=== PATIENT | female | born 1930 | race Caucasian/White ===

== ENCOUNTER 2018-04-18 12:40 | Inpatient (IN) | payer OTHER ==
[~2018-04-18] VITALS: Ht 152.4 cm; Wt 52.2 kg
[2018-04-18 12:41] VITALS: BP 123/74
[2018-04-18 13:01] LABS: ABSOLUTE NEUTROPHILS 11.2 thou/uL (1.4-8.2); BASOPHILS 0.4 % (0.0-2.0); HEMATOCRIT 39.7 % (37.0-47.0); HEMOGLOBIN 13.3 gm/dL (12.0-15.0); LYMPHOCYTES 5.6 % (24.0-44.0); MCHC 33.5 g/dL (28.0-37.0); MCV 92.5 fL (80.0-100.0); MONOCYTES 6.1 % (1.0-8.0); PLATELET COUNT 227 thou/uL (150-400); POLYS 87.9 % (36.0-66.0); RBC 4.29 mil/uL (4.20-5.00); RDW 14.8 % (10.5-14.5); WBC 12.7 thou/uL (4.0-11.0)
[2018-04-18 13:05] LABS: URINE BILIRUBIN NEGATIVE (Negative); URINE BLOOD NEGATIVE (Negative); URINE CLARITY CLEAR; URINE COLOR YELLOW; URINE GLUCOSE-RANDOM* TRACE (Negative); URINE KETONES NEGATIVE (Negative); URINE LEUKOCYTES-REFLEX NEGATIVE (Negative); URINE NITRITE-REFLEX NEGATIVE (Negative); URINE PROTEIN (DIPSTICK) 1+ (Negative); URINE SPECIFIC GRAVITY 1.025 (1.005-1.035); URINE UROBILINOGEN 0.2 E.U./dl (0.2-1.0)
[2018-04-18] MEDS ORDERED: CELEXA20 MG PO (13:07)
[2018-04-18] MEDS ORDERED: FOLIC ACID0.4 MG PO (13:07)
[2018-04-18] MEDS ORDERED: ARICEPT 5 MG TAB5 MG PO (13:07)
[2018-04-18] MEDS ORDERED: IRON325 PO (13:07)
[2018-04-18] MEDS ORDERED: NAMENDA 10 MG T10 MG PO (13:08)
[2018-04-18] MEDS ORDERED: SYNTHROID75 MCG PO (13:08)
[2018-04-18] MEDS ORDERED: OMEPRAZOLE40 MG PO (13:08)
[2018-04-18 13:09] LABS: ANION GAP 9 mmol/L (7-16); BUN 20 mg/dL (7-18); CALCIUM 8.9 mg/dL (8.5-10.1); CHLORIDE 101 mmol/L (98-107); CO2 26 mmol/L (21-32); GLUCOSE 357 mg/dL (74-106); POTASSIUM 4.6 mmol/L (3.5-5.1); SODIUM 136 mmol/L (136-145)
[2018-04-18] MEDS ORDERED: VITAMIN B-12500 MCG PO (13:09)
[2018-04-18] MEDS ORDERED: VITAMINC500 PO (13:09)
[2018-04-18] MEDS ORDERED: VITAMIN D1000 UNI1 PO (13:10)
[2018-04-18] MEDS ORDERED: MELATONIN5 M1 PO (13:10)
[2018-04-18] MEDS ORDERED: KLOR-CON 1010 MEQ PO (13:10)
[2018-04-18 13:17] LABS: ALBUMIN 3.7 g/dL (3.4-5.0); SGOT 19 U/L (15-37); SGPT 19 U/L (30-65); TOTAL BILIRUBIN 0.6 mg/dL (<0.1-1.0); TROPONIN-I <0.06 ng/mL (<0.06)
[2018-04-18 13:22] LABS: CASTS None Seen /LPF (None Seen); SQUAMOUS 0-3 Few /LPF (0-3)
[2018-04-18 13:23] LABS: BACTERIA-REFLEX None Seen /HPF (None Seen); CRYSTALS None Seen /LPF (None Seen); URINE RBC 0-2 Rare /HPF (0-2); URINE WBC-REFLEX 0-5 Rare /HPF (0-5)
[2018-04-18 14:34] VITALS: BP 140/86
[2018-04-18 15:00] VITALS: BP 136/70
[2018-04-18 15:04] LABS: TSH 6.098 uIU/mL (0.358-3.740)
[2018-04-18 15:43] VITALS: BP 142/69
--- NOTE | 2018-04-18 19:07 | NUR ---
PT ARRIVED FROM ER THIS AFTERNOON. ADMISSION HX, ASSESSMENT AND MED REC COMPLETE. PT RESTING COMFORTABLY. PLEASE CALL DPOA FOR ANY CONSENT PT IS NOT COGNIZANT TO SIGN.
[2018-04-18 20:01] VITALS: BP 163/95
--- NOTE | 2018-04-19 01:32 | NUR ---
PATIENT HERE FOR HIP FX.PATIENT AOX2 CONFUSED AND FORGETFUL.PATIENT DENIED PAIN OR DISCOMFORT. YVAN MILLIGAN CALLED NEW ORDER TO CHANGE PATIENTS DIET FROM NPO TO REGULAR. PATIENT IS NOT HAVING SURGERY IN THE AM AND WILL SEE PATIENT IN THE AFTERNOON.PATIENT USES A BED SEYMOUR THIS SHIFT. PATIENT IN BED ASLEEP AT THIS TIME BREATHING REGULAR AND UNLABOURED.
[2018-04-19 03:22] VITALS: BP 176/74
[2018-04-19 07:10] VITALS: BP 159/79
--- NOTE | 2018-04-19 08:23 | EKG ---
[place] [address] [place] [address] ELECTROCARDIOGRAM REPORT Name: RAHEL POSEY Room #: 460-P ADM IN M.R.#: [id number] ������������������ Admission: 04/18/18 ������������������ Attend Phys: Royce Roy Discharge: ������������������ Date of : [birth year] Report #: [id number] ����������������������������������������������������������������� [id number] THIS REPORT FOR: //name// [facility] ED Test Date: 2018-04-18 Test Time: 12:57:28 Pat Name: RAHEL POSEY Department: Room: [facility] Gender: F Sql Database Programmer: [facility] : 1930 Requested By: Merly Islas Order Number: [id number] MD: Indio Shelby Measurements Intervals [place] Rate: 93 P: 83 IA: 149 QRS: -37 QRSD: 94 T: 73 QT: 390 QTc: 486 Interpretive Statements Probable sinus rhythm with atrial premature complexes Abnormal R-wave progression, late transition Borderline prolonged QT interval Nonspecific ST segment abnormality No previous ECG available for comparison Electronically Signed On 04-19-2018 8:23:28 GOLD MARKER by Indio Shelby [email or web address] ��������������������������������������������� <ELECTRONICALLY SIGNED> ���������������������������������������� By: Indio Shelby MD, [facility] ��������������������������������������������� 04/19/18 0823 [id number] Indio Shelby MD, FAC /EPI
[2018-04-19 13:47] VITALS: BP 147/81
--- NOTE | 2018-04-19 14:42 | NUR ---
PT ADMITTED RELATED TO FX TROCHANTER. CM REVIEWED CHART AND SPOKE WITH CARE TEAM. CM MET WITH PT AT BEDSIDE THIS DAY PT IS A&O TO SELF. CM ROLE INTRODUCED. PT INDICATED SHE LIVES IN AN APARTMENT ALONE. PT INDICATED SHE HAD USED A FWW TO ASSIST WITH MOBILITY ENVIRONMENTAL CONTROL ADMINISTRATOR. CM CALLED PT'S DPOA/NEIGHBOR HAZEL . SHE INDICATED THAT PT LIVES AT INDEPENDENT LIVING AT [facility]. SHE INDICATED THAT PT HAD BEEN USING A FWW TO ASSIST WITH MOBILITY ENVIRONMENTAL CONTROL ADMINISTRATOR AND THAT SHE HAD BEEN GETTING THERAPY AND PD SERVICES THROUGH [facility]. SHE SAID THEY WERE GETTING PT UP, PUTTING TO BED, ESCORTING TO MEALS, ADMINISTERING MEDS TWICE PER DAY. CM INDICATED THAT ORTHO SAID NO SURGICAL INTERVENTION AND THAT PT WOULD BE TOE TOUCH WB ON R LE. CM CALLED AND SPOKE WITH TRICIA AT [facility] PER HAZEL'S REQUEST AND INDICATED THE ABOVE. SHE INDICATED SHE FELT THAT PT WOULD NEED SNF POST ACUTE CARE STAY FOR ADDITIONAL SUPERVISION TO MAINTAIN WB. HAZEL ASKED THAT REFERR[facility] BE SENT TO [facility]. CM TO FOLLOW INDICATED WITH DC PLANNING.
--- NOTE | 2018-04-19 19:28 | NUR ---
Pt stable through out the shift, not able to get out of the bed. Pt is very forgetful. Pt was placed back on a regular diet and is well tolerated, had a large bm. Bed bath and jorge alberto care done. Pt is incontinent at times. No complaints of pain nor verbqalizations of issues noted.
[2018-04-19 20:00] VITALS: BP 164/98
[2018-04-20] VITALS (7 sets, daily range): BP systolic 125–1252; BP diastolic 73–90
[2018-04-20 00:33] LABS: GLYCOHEMOGLOBIN (HGB A1C) 5.8 % (4.8-5.6)
--- NOTE | 2018-04-20 03:42 | NUR ---
ASSESSMENT: PT REMAIN ALERT AND ORIENT TIMES TWO WITH BOUTS OF CONFUSION AND FORGETFULNESS TO SITUATION AND PLACE. PT APPEARS TO MASK MOST OF HER FORGETFULNESS WITH CONVERSATION THAT IS NOT CREDIBLE TO REALITY. VSS, AFEBRILE. REORIENT TO PLACE AND SITUATION WHEN FEASIBLE. NEW IV INITATED IN THE RIGHT FA. IVF'S INFUSING WITHOUT DIFFICULTY. REMAINED SAFE THIS SHIFT. TOLERATING PO INTAKE. CALL BUTTON NEAR, USES APPROPRIATELY. SLOW PROGRESS, WILL CONTINUE TO MONITOR.
--- NOTE | 2018-04-20 09:45 | NUR ---
FAXED REFERRAL ON 04/19 TO [facility] AND HC SPOKE WITH EBONY IN ADM. SHE RECEIVED REFERRAL AND WILL REVIEW. FA[facility]ED REFERRAL TO [facility] LEFT [facility] WITH ADM. THAT DCP WILL FAX PT/OT NOTES ONCE AVAILABLE. DCP TO FOLLOW.
--- NOTE | 2018-04-20 10:16 | NUR ---
voice message from vicente with [facility] "she on service with [facility] at [facility]. she has private duty package and has used our hh in past. if need assistance with dcp call vicente at [phone]"/[facility].
--- NOTE | 2018-04-20 16:18 | NUR ---
PER ORTHO NOTE PT IS TOW TOUCH WEIGHT BEARING ON RLE. CM AWAITING THERAPY EVALS TO SEND TO FACILITIES FOR POSSIBLE POST ACUTE CARE STAY. CM FOLLOWING INDICATED WITH DC PLANNING.
--- NOTE | 2018-04-20 18:18 | NUR ---
Pt bp elevated during the shift, informed Dr. Roy informed amlodipine ordered and given. Elevated bp still noted post several hours of initial dose given to pt, informed Dr. Manuela MD suggested to monitor pt since this is just the initial dose. Pt moved to room 462, since level of confusions is elevated compared to baseline of this am. Pt is still incontinent. No verbalization of pain no issues noted. POC followed .
[2018-04-21 04:48] VITALS: BP 147/97
--- NOTE | 2018-04-21 07:08 | NUR ---
ASSUMED PT CARE AT 1900. PT IS ALERT BUT CONFUSED, NO SIGN OF DISTRESS NOTED IN PT. PT IS LAYING IN PT WITH BEDREST AND STRICTLY NO MOVEMENT. DENIES ANY NEED, PT IS STABLE THROUGHOUT THE NIGHT. NO FURTHER SIGNS OF DISTRESS NOTED AT THIS TIME
[2018-04-21 08:00] VITALS: BP 152/87
[2018-04-21] MEDS ORDERED: NORVASC10 MG PO (09:12)
[2018-04-21] MEDS ORDERED: TRAMADOL 50 MG50 MG PO (09:12)
[2018-04-21] MEDS ORDERED: PAIN & FEVER325 MG PO (09:13)
--- NOTE | 2018-04-21 14:11 | NUR ---
DISCHARGE PLANNING. PATIENT IS READY FOR DISCHARGE TODAY. POST ACUTE CARE ORDERED. REFERRAL [facility]ED TO [facility]. CALL PLACED TO BOTH FACILITY ADMISSIONS COORDINATORS TO NOTIFY OF REFERRAL AND PATIENTS DISCHARGE NEEDS. BOTH TO REVIEW AND CONTACT CM ONCE COMPLETE PRIOR TO SUBMITTING FOR INSURANCE AUTH. FOLLOWING TO ASSIST.
[2018-04-21 15:00] VITALS: BP 118/72
--- NOTE | 2018-04-21 15:58 | NUR ---
DC DIRECTOR CONSTRUCTION SERVICES NOTIFIED CM THAT [facility] DOESN'T HAVE ANY OPEN BEDS AND THAT [facility] IS OUT OF NETWORK WITH PT INSURANCE. PT WOULD OWE $175.00 PER DAY IF SHE WERE TO GO THERE. CM CALLED AND NOTIVIED PT'S DPOA AND SHE ASKED THAT REFERRALS BE SENT TO [facility] AND [facility] FOR REVIEW. REFERRALS SENT. CM TO FOLLOW INDICATED WITH DC PLANNING.
--- NOTE | 2018-04-21 18:09 | NUR ---
Assumed pt care this am, pt is less confused today. No pain noted. PT worked with pt, she was not able to ambulate with a walker. Was able to transfer from bed to chair, non weight bearing on the affected leg. Diet is well tolerated. Awaiting placement as notified by the CM, DC orders in place.
[2018-04-21 19:44] VITALS: BP 135/72
[2018-04-22 02:53] VITALS: BP 149/88
--- NOTE | 2018-04-22 05:01 | NUR ---
Pt. rested quietly in bed all night and offers no c/o pain or discomfort. Bed alarm is on.
[2018-04-22 08:36] VITALS: BP 151/96
[2018-04-22 17:00] VITALS: BP 132/74
[2018-04-22 19:59] VITALS: BP 142/80
[2018-04-23 03:57] VITALS: BP 172/91
--- NOTE | 2018-04-23 04:03 | NUR ---
PT DENIED PAIN SO FAR.TOE TOUCH WT BEARING ON HER RLE.ALERT TO SELF.PO FLUIDS ENCOURAGED.INCONT OF BLADDER,FANNY CARE GIVEN WITH EACH INCONTINENCE.PT RESTING ON HER BED AT THIS TIME.FALL PRECAUTIONS IN PLACE.CALL LIGHT WITHIN REACH.
[2018-04-23 10:23] VITALS: BP 146/81
[2018-04-23 14:28] VITALS: BP 135/68
[2018-04-23 19:45] VITALS: BP 121/77
[2018-04-24 04:28] VITALS: BP 147/83
--- NOTE | 2018-04-24 07:15 | NUR ---
PATIENTS CARES WERE ASSUMED AT SHIFT CHANGE. PATIENT WAS ASSESSED AND MEDS WERE PASSED. PATIENT DID NOT CALL OUT. HOURLY ROUNDING WAS DONE AND PATIENT DID APPER TO BE SLEEPING. THE BED IS IN A LOW AND LOCKED POSITION. THE BED ALARM IS ON. THE PLAN PER REPORT IS SHE IS TO MOVE TO REHAB TODAY. NO SURGICAL INTERVENTION.
[2018-04-24 08:00] VITALS: BP 133/85
--- NOTE | 2018-04-24 10:13 | NUR ---
PREFORM MACHINE OPERATOR SENT UPDATES TO [facility] AND [facility]. PATIENT IS READY FOR DC. DP CONTACTED BOTH FACILITIES TO LET ADMISSIONS KNOW UPDATES WERE SENT THIS MORNING.
--- NOTE | 2018-04-24 14:56 | NUR ---
UPDATED CLINICAL WAS SENT TO [facility] THIS AM THEY HAD SUBMITTED FOR INSURACE AUTH LATE TUESDAY. THEY ARE ABLE TO ACCEPT PT FOR SKILLED REHAB THIS DAY. THEY ARE ABLE TO PROVIDE WC VAN TRANSPORT AT 1630 THIS AFTERNOON. CM CALLED AND LEFT FOR PT'S DPOA HAZEL. CHART COPY MADE. ORDERS TO BE FAXED. REPORT TO BE CALLED TO . NO OTHER CM INTERVENTION INDICATED AT THIS TIME. CASE CLOSED.
[2018-04-24 15:00] VITALS: BP 124/72
--- NOTE | 2018-04-24 16:11 | NUR ---
Assumed care of patient at 0700. Patient in bed, no c/o pain while not being moved. Does grimace and report pain with movement. Able to work with PT/OT, up to chair for several hours. No surgical interventions for right trochantor fracture, ok'd for discharge today. Patient to go to [facility] at 1630 today via wheelchair van. Report called to nurse at [facility].
--- NOTE | 2018-04-27 11:38 | HC ---
[facility] [place] [address] CONSULTATION Name: RAHEL POSEY Room #: 462-[facility] IN M.R.#: [id number] Admission: 04/18/18 ������������������ Attend Phys: Royce Roy Discharge: 04/24/18 ������������������ Date of : [birth year] Report #: [id number] THIS REPORT FOR: //name// CC: Ting Roy DATE OF SERVICE: 04/19/2018 CHIEF COMPLAINT: Right hip pain. HISTORY OF PRESENT ILLNESS: The patient is a pleasant 87-year-old female who was admitted to the Emergency Department at [facility] yesterday with complaints of right hip pain status post fall. The patient reports that she was told that she had a fall yesterday, although she states she does not remember how she fell. She seems pleasantly confused, stating that she typically resides in her own home and walks without assistance, although H and P reports that she resides at [facility] and typically ambulates with a walker. The patient reports that she is having no pain today, lying in bed. ALLERGIES: DIAZEPAM AND MORPHINE. MEDICATIONS: Please see MAR for current medications and dosages, but reported medications include folic acid, melatonin, citalopram, donepezil, ferrous sulfate, levothyroxine sodium, memantine, omeprazole, cyanocobalamin, cholecalciferol, potassium chloride. PAST MEDICAL HISTORY: Significant for right drop foot for which the patient wears an AFO when ambulating, thyroid disease, dementia. SOCIAL HISTORY: The patient denies any tobacco or alcohol use. PHYSICAL EXAMINATION: GENERAL: The patient is awake and alert, in no acute distress. VITAL SIGNS: Temperature 36.7 degrees Celsius, blood pressure 159/79, pulse 74, bedside pulse oximetry is 97. EXTREMITIES: Right lower extremity is neurovascularly intact. The patient has tenderness to palpation over the greater trochanter of the right hip. No tenderness to palpation of the anterior hip/groin, no tenderness to palpation about the thigh, knee. Mild discomfort noted with passive range of motion of the right hip. No tenderness to palpation noted about the knee or ankle, no pain with passive range of motion of the ankle or knee. Left lower extremity is neurovascularly intact, no tenderness to palpation of the left hip. IMAGING STUDIES: CT scan performed on 04/18/[address] pelvis demonstrates a comminuted fracture involving the right hip greater trochanter. The right hip [address] [address] CONSULTATION Name: RAHEL POSEY Room #: 462-[facility] IN M.R.#: [id number] Admission: 04/18/18 ������������������ Attend Phys: Royce Roy Discharge: 04/24/18 ������������������ Date of : [birth year] Report #: [id number] is weakened by loss of supporting lateral and cortical bone, but otherwise appears intact without acute intertrochanteric neck fracture seen. IMPRESSION: Right hip pain, greater trochanter fracture, secondary to fall. PLAN: Discussed the plan with the patient and her day nurse; at this point, we will limit the patient's weightbearing; she will be toe touch weightbearing on the right lower extremity. At this point, this fracture should be able to be treated nonoperatively. We discussed the need for followup radiographs and the need to be seen in the outpatient clinic going forward. We will continue to follow the patient on her hospital stay. We will plan to see the patient back in the office for repeat radiographs of the right hip in 2-3 weeks' time. ��������������������������������������������� <ELECTRONICALLY SIGNED> ���������������������������������������� By: ALEC Reis ��������������������������������������������� 04/27/18 1138 [id number] ALEC Reis /nt
== END 2018-04-24 17:23 | DRG 535 ==
LOC: ER 12:40 → EROBS 13:36 → 4W 13:36
PROVIDERS: Physician Assistant; ADMIT Hospitalist
DX: S72.114A Nondisplaced fracture of greater trochanter of right femur, initial encounter for closed fracture (principal); E43 Unspecified severe protein-calorie malnutrition; K21.9 Gastro-esophageal reflux disease without esophagitis; K59.00 Constipation, unspecified; F03.90 Unspecified dementia, unspecified severity, without behavioral disturbance, psychotic disturbance, mood disturbance, and anxiety; S09.90XA Unspecified injury of head, initial encounter; E03.9 Hypothyroidism, unspecified; E11.65 Type 2 diabetes mellitus with hyperglycemia; E53.8 Deficiency of other specified B group vitamins; Z47.89 Encounter for other orthopedic aftercare; Z88.6 Allergy status to analgesic agent; Z88.8 Allergy status to other drugs, medicaments and biological substances; W18.39XA Other fall on same level, initial encounter; Y93.89 Activity, other specified; Y92.89 Other specified places as the place of occurrence of the external cause; Y99.8 Other external cause status
CPT/HCPCS: 10045; 10047

== ENCOUNTER 2018-07-14 19:44 | Inpatient (IN) | payer OTHER ==
[~2018-07-14] VITALS: Ht 160 cm; Wt 49.9 kg
[~2018-07-14 19:44] MED LIST: ARICEPT 5 MG TAB5 MG PO; CELEXA20 MG PO; FOLIC ACID0.4 MG PO; IRON325 PO; KLOR-CON 1010 MEQ PO; MELATONIN5 M1 PO; NAMENDA 10 MG T10 MG PO; NORVASC10 MG PO; OMEPRAZOLE40 MG PO; PAIN & FEVER325 MG PO; SYNTHROID75 MCG PO; TRAMADOL 50 MG50 MG PO; VITAMIN B-12500 MCG PO; VITAMIN D1000 UNI1 PO; VITAMINC500 PO
[2018-07-14 20:13] LABS: URINE BLOOD TRACE (Negative); URINE CLARITY CLEAR; URINE COLOR YELLOW; URINE GLUCOSE-RANDOM* NEGATIVE (Negative); URINE KETONES TRACE (Negative); URINE LEUKOCYTES 3+ (Negative); URINE NITRITE NEGATIVE (Negative); URINE PROTEIN (DIPSTICK) 1+ (Negative); URINE SPECIFIC GRAVITY >= 1.030 (1.005-1.035)
[2018-07-14 20:14] LABS: ICTOTEST (BILI CONFIRMATORY) Negative (Negative); URINE BILIRUBIN NEGATIVE (Negative)
[2018-07-14 20:22] LABS: BACTERIA >30 Many /HPF (None Seen); CASTS None Seen /LPF (None Seen); CRYSTALS None Seen /LPF (None Seen); SQUAMOUS 0-3 Few /LPF (0-3); URINE RBC 0-2 Rare /HPF (0-2)
[2018-07-14 20:24] LABS: ABSOLUTE NEUTROPHILS 14.4 thou/uL (1.4-8.2); BASOPHILS 0.3 % (0.0-2.0); HEMATOCRIT 33.4 % (37.0-47.0); HEMOGLOBIN 10.8 gm/dL (12.0-15.0); LYMPHOCYTES 10.2 % (24.0-44.0); MCH 29.2 pg (26.0-34.0); MCHC 32.4 g/dL (28.0-37.0); MCV 90.2 fL (80.0-100.0); MONOCYTES 5.9 % (1.0-8.0); PLATELET COUNT 233 thou/uL (150-400); POLYS 83.6 % (36.0-66.0); RBC 3.71 mil/uL (4.20-5.00); RDW 18.7 % (10.5-14.5); WBC 17.3 thou/uL (4.0-11.0)
--- NOTE | 2018-07-14 20:28 | NUR ---
called Dr Herbert for Acosta Sanchez to affirm cod status. Per nurse at [facility], pt and listed DPOA made pt DNR status 3 weeks ago, paper work taken by PROFESSOR OF MECHANICAL ENGINEERING to physician to be signed, It is a pink sheet, it has not been returned. Multiple calls to DPOA without answer. Call made to DR Spring Herbert message left.
[2018-07-14 20:33] LABS: CALCIUM 8.2 mg/dL (8.5-10.1); CREATININE 1.8 mg/dL (0.6-1.0); POTASSIUM 4.9 mmol/L (3.5-5.1)
[2018-07-14 20:40] LABS: ALBUMIN 2.7 g/dL (3.4-5.0); DIRECT BILIRUBIN 0.3 mg/dL (<0.1-0.3); TOTAL BILIRUBIN 0.8 mg/dL (<0.1-1.0); TOTAL PROTEIN 6.2 g/dL (6.4-8.2)
[2018-07-14 21:00] LABS: BE(vivo) -6.9 mmol/L (-2 to +3); HCO3 15.7 mmol/L (22.0-26.0); PO2 137.9 mmHg (80.0-100.0); pH 7.449 (7.360-7.450); sO2 98.9 % (92.0-98.0)
[2018-07-14 21:02] LABS: PCO2 23.1 mmHg (35.0-45.0)
--- NOTE | 2018-07-14 21:27 | NUR ---
DPOA CALLED BACK, OLESYA MARISCAL VERIFIED NO CODE STATUS, PAPERS HAVE BEEN SIGHNED. ORGANIC EXTRACTIONS TECHNICIAN ALSO VERIFIED STATUS OF DNR
[2018-07-14 21:57] LABS: ANISOCYTOSIS 2+
[2018-07-14 23:20] VITALS: BP 91/41
[2018-07-15] VITALS (9 sets, daily range): BP systolic 41–133; BP diastolic 25–103
--- NOTE | 2018-07-15 02:44 | NUR ---
PT ADMITTED FROM ED WITH SEPSIS AND UTI.ARRIVED TO UNIT VIA CART ACCOMPANIED BY STAFF.PT DNR PER REPORT.ON ARRIVAL ON BIPAP.O2 SATS IN MID 80S.HR IN 150S,BLOOD PRESSURE WNL.IVF BOLUS INFUSING.ZOSYN AND VANCOMYCIN ADMINISTERED PER ORDERS.PT TOLERATING.PT OPENS EYES UPON VERBAL RESPONSE,RESPONSIVE AND FOLLOWS SIMPLE COMMANDS.A/O TO SELF.ASSESSMENT COMPLETED.BELTRAN MAYA PER PROTOCOL,MINIMAL UO.PT TACHYCARDIAC ON MONITOR.DIALTIZEM 15MG BOLUS GIVEN PER SEED MILL SUPERINTENDENT ORDERS.ON BIPAP.PT DENIES PAIN BUT MOANS WITH MOVING AND REPOSITIONING IN BED.SEED MILL SUPERINTENDENT ROUNDED ON PT.POC IS TO CONT WITH CURRENT TX.WILL CONT TO MONITOR PER POC.
[2018-07-15 05:18] LABS: HEMATOCRIT 30.8 % (37.0-47.0); MCH 29.3 pg (26.0-34.0); MCHC 32.4 g/dL (28.0-37.0); MCV 90.3 fL (80.0-100.0); RBC 3.42 mil/uL (4.20-5.00); RDW 18.8 % (10.5-14.5); WBC 16.8 thou/uL (4.0-11.0)
[2018-07-15 06:01] LABS: ALBUMIN 2.1 g/dL (3.4-5.0); CALCIUM 6.9 mg/dL (8.5-10.1); CREATININE 1.7 mg/dL (0.6-1.0); POTASSIUM 4.2 mmol/L (3.5-5.1); TOTAL BILIRUBIN 0.5 mg/dL (<0.1-1.0); TOTAL PROTEIN 5.2 g/dL (6.4-8.2)
--- NOTE | 2018-07-15 09:26 | NUR ---
RAPID RESPONSE CALLED THIS AM FOR HR IN 130-160'S AFIB RVR. PT ALSO DX WITH SEPSIS AND HAS BEEN HYPOTENSIVE. PT ALERT AND ON BIPAP, O2 SAT READING ON PORTABLE O2 MONITOR IN 90'S. PRIMARY RN CALLED ATTENING AND ORDERS RECEIVED FOR NS BOLUS, PULM AND CARDIOLOGY CONSULTS, AND TX TO ICU. ROOM 243 ASSIGNED AT END OF DOCKING PILOT.
[2018-07-15 10:54] LABS: HEMATOCRIT 28.8 % (37.0-47.0); HEMOGLOBIN 9.1 gm/dL (12.0-15.0); MCH 28.8 pg (26.0-34.0); MCHC 31.7 g/dL (28.0-37.0); MCV 90.9 fL (80.0-100.0); RBC 3.17 mil/uL (4.20-5.00); RDW 19.1 % (10.5-14.5); WBC 15.4 thou/uL (4.0-11.0)
[2018-07-15 11:04] LABS: INR 1.5; PROTIME 15.4 Seconds (9.3-11.4)
--- NOTE | 2018-07-15 12:15 | NUR ---
VASCULAR ACCESS CONSULTED FOR PICC PLACEMENT. PT'S LABS,MEDS,HISTORY,ORDER AND CONSENT VERIFIED. PT WAS PREPPED AND DRAPED FOR MAX BARRIER PRECAUTIONS. JEMMA BASILIC WAS WIDELY PATENT WITH USG, 1% LIDOCAINE GIVEN SQ. 5FR TL POWER PICC TRIMMED TO 41CM INSERTED TO 1CM EXTERNAL. PICC SECURED STAT CXR ORDERED. GAUZE AND PRESSURE APPLIED TO INSERTION SITE,AREA BRUISING AND BLEEDING.
--- NOTE | 2018-07-15 12:30 | NUR ---
ASSUMED CARE OF PT AT 0730 IN CCU BED 216. PT NOT ALERT, OPENS EYES WITH LOUD VOICE COMMAND, AND MOVES AWAY FROM PAIN STIMULUS. PT WAS ABLE TO FOLLOW COMMAND TO SQUEEZE MY HANDS (EXTREMLY WEAK). PT PULSES NOT PALPABLE IN WRISTS, FEET, CAROTIDS, HOWEVER PALPABLE IN RIGHT GROIN. PT'S HEART RATE TACHY 120-150'S, AND NOT AUDIBLE. PT WAS 75-90% O2 ON PULSE OXIMETRY. PT MEETS SEPSIS CRITERIA. RAPID RESPONSE CALLED AND PT EKG RESULTED AFIB AT 139 BPM. RT STATES PT'S PERFUSION TOO POOR TO GET A STRONG SIGNAL ON OXIMETRY. DR. KINNEY CALLED AND ORDERED 1000 NS BOLUS, CARDIAC/PULM CONSULT STAT, AND TRANSFER TO ICU. DR. HOFFMANN CALLED AND ORDERED AMIO BULUS/DRIP PER PROTOCOL. DR. PRAJAPATI SPOKE WITH RT. REPORT CALLED TO PAOLA IN ICU AND PT TRANSFERRED.
--- NOTE | 2018-07-15 13:29 | NUR ---
CXR CONFIRMED PLACEMENT IN CAJ, PICC RELEASED FOR IMMEDIATE USE PER PROTOCOL TO CODY QUINTERO
--- NOTE | 2018-07-15 16:13 | NUR ---
PATIENT ARRIVED FROM CCU THIS MORNING, HEART RATE IN 160S IV METOPROLOL GIVEN, AMIODARONE STARTED. PATIENT PLACED ON BIPAP. BROUGHT TO CT AND NUCLEAR MED FOR SCANS. POST SCAN PATIENT BECAME NON-RESPONSIVE AND JOEY DOWN TO 30S. DR. KINNEY AND ALO NOTIFIED. PATIENT AT 1517, DPOA NOTIFIED.
--- NOTE | 2018-07-16 22:33 | EKG ---
[place] [address] [facility] [place] [address] ELECTROCARDIOGRAM REPORT Name: RAHEL POSEY Room #: 243-[facility] IN M.R.#: [id number] ������������������ Admission: 07/14/18 ������������������ Attend Phys: Carlos Manuel Olson MD Discharge: 07/15/18 ������������������ Date of : [birth year] Report #: [id number] ����������������������������������������������������������������� [id number] THIS REPORT FOR: //name// [facility] ED Test Date: 2018-07-14 Test Time: 20:09:47 Pat Name: RAHEL POSEY Department: Room: [facility] Gender: F Whiskey Regauger: : 1930 Requested By: Daniel Camara Order Number: [id number] MD: Carlyle Bah Measurements Intervals [place] Rate: 129 P: 66 [place]: 127 QRS: -63 QRSD: 95 T: 209 QT: 366 QTc: 537 Interpretive Statements Atrial fibrillation Left anterior fascicular block Probable anterior infarct, age indeterminate Lateral leads are also involved Electronically Signed On 07-16-2018 22:33:11 CDT by Carlyle Bah [email or web address] ��������������������������������������������� <ELECTRONICALLY SIGNED> ���������������������������������������� By: Carlyle Bah MD ��������������������������������������������� 07/16/182232 08 08 Carlyle Bah MD /NEYDA
--- NOTE | 2018-07-16 22:35 | EKG ---
[address] [address] ELECTROCARDIOGRAM REPORT Name: RAHEL POSEY Room #: 243-[facility] IN M.R.#: [id number] ������������������ Admission: 07/14/18 ������������������ Attend Phys: Carlos Manuel Olson MD Discharge: 07/15/18 ������������������ Date of : [birth year] Report #: [id number] ����������������������������������������������������������������� [id number] THIS REPORT FOR: //name// [facility] ED Test Date: 2018-07-14 Test Time: 22:09:04 Pat Name: RAHEL POSEY Department: Room: [facility] Gender: F Frame Wirer: : 1930 Requested By: Daniel Camara Order Number: [id number] MD: Carlyle Bah Measurements Intervals [place] Rate: 132 P: 81 [place]: 126 QRS: -29 QRSD: 86 T: 192 QT: 339 QTc: 503 Interpretive Statements Atrial fibrillation Probable anterior infarct, age indeterminate Compared to ECG 04/18/2018 12:57:28 Myocardial infarct finding now present ST (T wave) deviation no longer present Electronically Signed On 07-16-2018 22:35:00 CDT by Carlyle Bah [email or web address] ��������������������������������������������� <ELECTRONICALLY SIGNED> ���������������������������������������� By: Carlyle Bah MD ��������������������������������������������� 07/16/185 08 08 Carlyle Bah MD /EPI
--- NOTE | 2018-07-16 22:37 | EKG ---
[address] [address] ELECTROCARDIOGRAM REPORT Name: RAHEL POSEY Room #: 243-[facility] IN M.R.#: [id number] ������������������ Admission: 07/14/18 ������������������ Attend Phys: Carlos Manuel Olson MD Discharge: 07/15/18 ������������������ Date of : [birth year] Report #: [id number] ����������������������������������������������������������������� [id number] THIS REPORT FOR: //name// [facility] Test Date: 2018-07-15 Test Time: 08:42:18 Pat Name: RAHEL POSEY Department: Room: [facility] Gender: F Admittance Attendant: : 1930 Requested By: Carlos Manuel Olson Order Number: [id number] MD: Carlyle Bah Measurements Intervals [place] Rate: 137 P: IN: QRS: -47 QRSD: 83 T: QT: 328 QTc: 496 Interpretive Statements Atrial fibrillation Left anterior fascicular block Low voltage, extremity leads Anteroseptal infarct, age indeterminate Nonspecific T abnormalities, lateral leads Compared to ECG 04/18/2018 12:57:28 Electronically Signed On 07-16-2018 22:37:40 CDT by Carlyle Bah [email or web address] ��������������������������������������������� <ELECTRONICALLY SIGNED> ���������������������������������������� By: Carlyle Bah MD ��������������������������������������������� 07/16/18 2237 0842 0842 Carlyle Bah MD /EPI
== END 2018-07-15 15:17 | DRG 871 ==
LOC: ER 19:44 → EROBS 22:26 → 2N 23:22 → ICU 07-15 09:25
PROVIDERS: Nurse Practitioner; Pediatrics; ADMIT Internal Medicine
PROC: 5A09357 Assistance with Respiratory Ventilation, Less than 24 Consecutive Hours, Continuous Positive Airway Pressure (ICD-10-PCS; principal; 2018-07-15)
PROC: 02HV33Z Insertion of Infusion Device into Superior Vena Cava, Percutaneous Approach (ICD-10-PCS; principal; 2018-07-15)
PROC: B548ZZA Ultrasonography of Superior Vena Cava, Guidance (ICD-10-PCS; principal; 2018-07-15)
DX: A41.9 Sepsis, unspecified organism (principal); J96.01 Acute respiratory failure with hypoxia; J18.1 Lobar pneumonia, unspecified organism; N39.0 Urinary tract infection, site not specified; E46 Unspecified protein-calorie malnutrition; N17.9 Acute kidney failure, unspecified; E87.0 Hyperosmolality and hypernatremia; Z68.1 Body mass index [BMI] 19.9 or less, adult; F03.90 Unspecified dementia, unspecified severity, without behavioral disturbance, psychotic disturbance, mood disturbance, and anxiety; E86.0 Dehydration; Z66 Do not resuscitate; F32.9 Major depressive disorder, single episode, unspecified; K21.9 Gastro-esophageal reflux disease without esophagitis; E11.22 Type 2 diabetes mellitus with diabetic chronic kidney disease; I12.9 Hypertensive chronic kidney disease with stage 1 through stage 4 chronic kidney disease, or unspecified chronic kidney disease; F17.210 Nicotine dependence, cigarettes, uncomplicated; Y95 Nosocomial condition; E03.9 Hypothyroidism, unspecified; I48.91 Unspecified atrial fibrillation; D64.9 Anemia, unspecified; R74.0 Nonspecific elevation of levels of transaminase and lactic acid dehydrogenase [LDH]; E87.5 Hyperkalemia; N18.9 Chronic kidney disease, unspecified; Z88.6 Allergy status to analgesic agent; Z88.8 Allergy status to other drugs, medicaments and biological substances; Z79.899 Other long term (current) drug therapy
CPT/HCPCS: 27000